=== PATIENT | female | born 1955 | race African-American/Black ===

== ENCOUNTER 2017-07-14 20:34 | Inpatient (IN) | payer OTHER ==
[~2017-07-14] VITALS: Ht 163.8 cm; Wt 64.4 kg
--- NOTE | 2017-07-14 20:30 | NUR ---
At around 1999, 61 year old female arrived via gurney accompanied by 2 tub washer. No acute distress noted. Breathing even and unlabored with normal respirations. Pleasant and calm. Vital signs stable. head to toe assessment done, pt. has right knee surgical incision with lyndon. No signs/symptoms of infection was noted. Kept clean, dry and comfortable. Call light within reach. All needs attended. Will continue to monitor.
[2017-07-14] MEDS ORDERED: BENZ1LOZ58 MM (21:54)
[2017-07-14] MEDS ORDERED: TIMO5SOL11 RIGHTEYE (21:54)
[2017-07-14] MEDS ORDERED: MAG30ORA PO (21:54)
[2017-07-14] MEDS ORDERED: LATA2.5D7 OP (21:54)
[2017-07-14] MEDS ORDERED: RIVA20TA PO (21:54)
[2017-07-14] MEDS ORDERED: MORP15TA IM (21:54)
[2017-07-14] MEDS ORDERED: PROM12.511 IM (21:54)
[2017-07-14] MEDS ORDERED: DOCU-141 PO (21:54)
[2017-07-14] MEDS ORDERED: OXYC10TA49 PO (21:54)
[2017-07-14] MEDS ORDERED: DIPH25CA83 PO (21:54)
[2017-07-14] MEDS ORDERED: ONDA4TAB5 IVP (21:54)
[2017-07-14] MEDS ORDERED: MAGN30OR PO (21:54)
[2017-07-14] MEDS ORDERED: OXYC15TA2 PO (21:54)
[2017-07-14] MEDS ORDERED: ZOLP5TAB8 PO (21:54)
[2017-07-14] MEDS ORDERED: SENN-18 PO (21:54)
[2017-07-14] MEDS ORDERED: NALO4SPR IV (21:54)
[2017-07-14] MEDS ORDERED: BISA-79 PO (21:54)
[2017-07-14] MEDS ORDERED: PANT40TA4 PO (21:54)
[2017-07-14] MEDS ORDERED: CLON0.1T PO (21:54)
[2017-07-14] MEDS ORDERED: ASPI-612 PO (21:54)
[2017-07-14] MEDS ORDERED: DORZ10DR8 OP (21:54)
--- NOTE | 2017-07-14 22:00 | NUR ---
Dr. Kemp came to see the pt. Med recon was done.
--- NOTE | 2017-07-14 23:15 | NUR ---
Pt. complained of 4/10 right knee pain. Oxycodone 10mg PRN was ordered. Medication given, however pending as per pharmacy. Relief noted.
[2017-07-14 23:44] VITALS: BP 109/74
--- NOTE | 2017-07-15 05:42 | NUR ---
Patient slept well throughout the shift. No apparent distress. Denies pain during this time. All needs attended. Will continue to monitor.
[2017-07-15 07:51] LABS: BASOPHILS # (AUTO) 0.1 K/uL (0.0-8.0); BASOPHILS % (AUTO) 1.8 % (0.0-2.0); EOSINOPHILS # (AUTO) 0.1 K/uL (0.0-0.7); EOSINOPHILS % (AUTO) 1.7 % (0.0-7.0); HEMATOCRIT 32.1 % (37-47); HEMOGLOBIN 10.5 G/DL (12.0-16.0); MEAN CORPUSCULAR HEMOGLOBIN 29.7 UUG (27.0-31.0); MEAN CORPUSCULAR HGB CONC 33 g/dL (32.0-37.0); MEAN CORPUSCULAR VOLUME 90.4 FL (81.0-99.0); MONOCYTES # (AUTO) 0.4 K/UL (0.1-1.30); MONOCYTES % (AUTO) 6.2 % (0.0-11.0); NEUTROPHILS # (AUTO) 4.2 K/UL (1.8-8.9); NEUTROPHILS % (AUTO) 61.3 % (38.5-71.5); PLATELET COUNT (AUTO) 243 K/UL (150-450); RED BLOOD CELL COUNT(AUTO) 3.55 MIL/UL (4.2-5.4); WHITE BLOOD COUNT (AUTO) 6.8 K/UL (4.0-11.2)
[2017-07-15 08:02] LABS: THYROID STIMULATING HORMONE 1.297 mIU/mL (0.358-3.740)
[2017-07-15 08:16] LABS: CREATININE 0.7 mg/dL (0.6-1.3); MAGNESIUM 2.3 mg/dL (1.8-2.4); PHOSPHOROUS 3.4 mg/dL (2.5-4.9); POTASSIUM 4.7 mmol/L (3.5-5.1); TOTAL PROTEIN, SERUM 6.7 g/dL (6.4-8.2)
[2017-07-15 08:18] VITALS: BP 115/69
--- NOTE | 2017-07-15 08:35 | NUR ---
SBAR report received. Pt. assessed to be awake, alert, oriented, and compliant with participating in PT this morning. Pt reports no discomfort or pain at this time. Morning medications administered. V/S stable. Will continue to monitor Pt and pending orders.
[2017-07-15 13:16] LABS: IRON, SERUM 33 ug/dL (50-175)
--- NOTE | 2017-07-15 16:50 | NUR ---
Pt complains of incisional pain 5/10 during routine medication administration. Oxycodone HCL 15mg administered as ordered for PRN pain by MD. All other needs met. Call light within reach. Will reassess and evaluate effectiveness of medication within the hour.
--- NOTE | 2017-07-15 17:47 | NUR ---
Contacted type photography supervisor to obtain CPM for Pt to apply at 65 degrees for 4-6hrs/day as ordered, but unable to locate one from within the hospital.
--- NOTE | 2017-07-15 18:51 | NUR ---
Pt has remained in stable condition and compliant for the duration of this shift. Pt denies pain at this time. No s/s of infection noted. Fall precautions in place and call light within reach. All needs have been met. Will continue to monitor for pain and s/s of infection. Will endorse details to police shift commander nurse.
[2017-07-15 20:48] VITALS: BP 138/82
--- NOTE | 2017-07-16 05:08 | NUR ---
QUIET NIGHT. PATIENT STABLE. MAKING NEEDS KNOWN. OOB TO THE BR WITH WALKER. VOIDING FREELY. NEEDS ATTENDED. DENIES ANY PAIN NOR ANY DISCOMFORT. WILL MONITOR PATIENT.
[2017-07-16 08:45] VITALS: BP 113/72
--- NOTE | 2017-07-16 09:10 | NUR ---
Pt. awake, alert, and oriented. v/s stable, hr slightly elevated at 110, pt states "the pain started when I was returning from the restroom" pain 04/08. Pt. compliant with all routine morning medications and additional pain medication as PRN order. Will continue to monitor effectiveness. CPM located PT requested to apply after working with pt. Call light within reach.
--- NOTE | 2017-07-16 12:00 | NUR ---
Physical therapist applied CPM at 60 degrees per pt request to work up to the ordered 65 degrees when tolerated. Will continue to monitor progress and increase when able to do so.
--- NOTE | 2017-07-16 15:12 | NUR ---
Pt. has well tolerated CPM on right LE for the past 4 hrs at 60 degrees. Pt reports pain managed to a tolerable level of 1-2/10. No s/s of infection present at this time. Will continue to monitor.
--- NOTE | 2017-07-16 18:42 | NUR ---
No changes to pt status for the duration of this shift. Will endorse to maintenance technician 3rd shift.
--- NOTE | 2017-07-16 19:30 | NUR ---
RECEIVED PATIENT LAYING COMFORTABLY IN BED. HOB ELEVATED. NO ACUTE DISTRESS NOTED. A&O X 4. FACIAL SYMMETRY. CPM AT BEDSIDE. NOTED RIGHT KNEE DRESSING AND WRAP C/D/I. PATIENT C/O PAIN ON THE RIGHT KNEE. NOTED LEFT KNEE OLD SCAR FROM SX IN 2013. WILL REVIEW MEDICATIONS. WILL GIVE MEDS ORDERED. BILATERAL PEDAL PULSES STRONG. PATIENT IS ABLE TO AMBULATE WITH WALKER. WALKER AT BEDSIDE. INSTRUCTED PATIENT TO USE CALL LIGHT WHEN IN NEED OF ASSISTANCE. VERBALIZED UNDERSTANDING. SAFETY INITIATED. CALL LIGHT WITHIN REACH. WILL CONTINUE TO MONITOR.
[2017-07-16 20:17] VITALS: BP 112/66
--- NOTE | 2017-07-17 06:24 | NUR ---
NO CHANGES T/O SHIFT. SAFETY AND COMFORT MEASURES MAINTAINED T/O SHIFT. RIGHT KNEE DRESSING C/D/I. PATIENT C/O 07/09 RIGHT KNEE PAIN, MEDS GIVEN, STATED RELIEF. ALL MEDS GIVEN ORDERED. ALL NEEDS MET.
[2017-07-17 07:40] VITALS: BP 109/69
--- NOTE | 2017-07-17 07:48 | NUR ---
Report received, at bedside. Pt found to be easily awoken out of sleep. Upon assessment Pt. states a tolerable pain level of 2-3/10 due to relief from previously administered pain medication per PRN order. Comfort and safety measures in place. Call light placed within reach. Will continue to monitor.
--- NOTE | 2017-07-17 13:48 | NUR ---
Pt sitting up in semi-fowlers position comfortably using CPM set to the ordered 65 degrees. Pt teaching to use the CPM as tolerated for the prescribed 4-6hrs/day discussed and Pt verbalized understanding. Pain level decreased to a tolerable 3/10 on pain scale due to the application of ice and PRN pain medication as ordered. Return call placed to Pt's daughter, unable to reach her at this time, left message. Call light within reach and will continue to monitor.
--- NOTE | 2017-07-17 17:39 | NUR ---
Pt. sitting comfortably in high fowlers position utilizing CPM at 65 degrees as ordered, activity well tolerated, as stated by Pt. Pt teaching provided on not increasing the CPM past the ordered 65 degrees but rather extend the length of time duration instead. Pt verbalizes understanding and plan of care discussed. All evening medications administered, manageable pain level of 3/10 during CPM activity noted. No s/s of infection at this time. Will continue to monitor and endorse to power and recovery shift engineer.
[2017-07-17 20:26] VITALS: BP 135/82
--- NOTE | 2017-07-17 20:30 | NUR ---
AAOx4 ALDRICH's OOB with walker to the BR under supervision. Continent of bowel and bladder. No BM this shift. Right knee dressing clean dry and intact. VSS. Possible D/C in am. No acute distress noted. Fall precautions maintained. Siderails up for safety. Needs attended. Denies any pain at this time. Will monitor patient.
--- NOTE | 2017-07-18 06:05 | NUR ---
SLEPT MOST OF THE SHIFT. PAIN MED GIVEN @ 2330 FOR RIGHT KNEE ROMIE. NEEDS ATTENDED, KEPT COMFORTABLE. WILL MONITOR . SEEN BY DEMARIO HERRERA. WILL MONITOR PATIENT. POSSIBLE DISCHARGE TODAY.
--- NOTE | 2017-07-18 07:46 | NUR ---
REPORT RECEIVED FROM INDUSTRIAL ORDER CLERK NURSE, PATIENT NOTED RESTING IN BED, NO COMPLAINTS OF PAIN, NO SIGNS OF DISTRESS NOTED, CALL IGHT IN REACH, BED LOCKED AND IN LOWEST POSITION
[2017-07-18 08:14] VITALS: BP 101/60
--- NOTE | 2017-07-18 19:27 | NUR ---
PATIENT NOTED ASLEEP IN BED, NO COMPLAINTS OF PAIN AT THIS TIME, NO SIGNS OF DISTRESS, SURGICAL SITE REDRESSED AT 1800 AND WRAPPED IN KATELYNN BANDAGE, CALL LIGHT IN REACH, BED LOCKED AND IN LOWEST POSITION.
--- NOTE | 2017-07-18 20:30 | NUR ---
AAOx4 ALDRICH's OOB with walker to the BR. Voiding well. Will monitor patient. Request for another knee immobilizer per Dr Phelps. Nursing supervisor wall mirror department aware. Needs attended. Was approved to stay until Monday. No acute distress noted.
[2017-07-18 20:41] VITALS: BP 119/62
--- NOTE | 2017-07-19 06:12 | NUR ---
Quiet night. Needs attended. Kept comfortable. Oxycodone 15 mg given for pain on the right knee. Had a new immobilizer per Dr Phelps's order.Voiding without any difficulty. No acute distress noted.
[2017-07-19 07:45] VITALS: BP 107/58
--- NOTE | 2017-07-19 13:29 | NUR ---
Interdisciplinary Rehab Summary
--- NOTE | 2017-07-19 17:16 | NUR ---
CM/DEBBY Costa at [facility] send authorization approving 7 days stay as well as approving the DME's ---Walker and CPM. Patient will leave with a walker and the CPM will be sent to patients home. Patient aware of plan and agreeable during interdisciplinary meeting.
--- NOTE | 2017-07-19 20:02 | NUR ---
Received pt on bed, alert, awake and oriented x4. Able to make needs known. Pleasant and calm. No acute distress noted. No complaints of pain during this time. Breathing even and unlabored. Vital signs stable, BP 125/75, HR 103, RR 20, Temp 98.1, O2 sat 100% RA. call light within reach. All needs attended.
[2017-07-19 20:07] VITALS: BP 125/75
--- NOTE | 2017-07-20 05:46 | NUR ---
Pt slept well throughout the night. Complained of pain on her right knee, medicated with oxycodone as ordered. Relief was noted. No apparent distress. Call light within reach. All needs attended.
--- NOTE | 2017-07-20 08:04 | NUR ---
Received patient awake alert and oriented. Resting in bed. With discomfort over right knee. Not in any form of distress. Call light within reach.
--- NOTE | 2017-07-20 08:30 | NUR ---
Patient for physical therapy at 9 am. Patient requested pain medications, rated pain over right knee at 7/10. PRN pain medication given.
[2017-07-20 08:50] VITALS: BP 107/68
--- NOTE | 2017-07-20 09:39 | NUR ---
Dressing changed. Up with therapy. Tolerating therapy well.
--- NOTE | 2017-07-20 14:30 | NUR ---
On CPM machine at 65 degrees tolerating well. With pain over right knee rated as 7/10. PRN pain medication given.
[2017-07-20 20:00] VITALS: BP 112/68
--- NOTE | 2017-07-20 20:30 | NUR ---
Received pt on bed awake, alert and oriented x4. No acute distress noted. Denies pain. All due meds given as ordered and well tolerated. Vital signs stable, BP 112/68, HR 101, RR 20, Temp 97.9, O2 sat 98% RA. Safety precautions observed. Call light within reach. All needs attended. Will continue to monitor.
--- NOTE | 2017-07-21 05:49 | NUR ---
Slept comfortably throughout the night. No s/s of distress. Complained 5/10 right knee pain, PRN oxycodone given as ordered. Verbalized relief. No other complaints noted. All needs attended.
[2017-07-21 08:39] VITALS: BP 118/64
--- NOTE | 2017-07-21 11:43 | NUR ---
PT SEEN ON ROUNDING. PT VITALS STABLE. ALL MEDS GIVEN. PT DISCHARGED AT 1130. PT GIVEN DISCHARGE INSTRUCTIONS REGARDING FOLLOW UP, PHARMACY APPOINTMENT AND CONTINUATION OF MEDICATIONS. PT GIVEN PRESCRIPTIONS ALONG WITH HOME MEDS. PT EDUCATED ON TOPICS SUCH INFECTION PREVENTION, FALL PREVENTION AND SMOKING CESSATION. PHOTOS TAKEN AND PLACED IN CHART. PT PROVIDED COPIES OF DISCHARGE INSTRUCTIONS. ALL BELONGING TAKEN HOME AND BELONGINGS LIST SIGNED AND PLACED IN CHART. VITALS STABLE UPON DISCHARGE.PT WENT HOME WITH A BRAND NEW WALKER. PT ASSISTED IN TRANFER WITH WHEELCHAIR. NO SIGNS OF ACUTE DISTRESS UPON DISCHARGE. Addendum: 07/21/17 at 1159 by LON ASHER RN PT LEFT WITH 26 VEDA. NO SIGN OF INFECTION.
== END 2017-07-21 11:30 | disposition home health service (06) | DRG 554 ==
PROVIDERS: ADMIT Physical Medicine & Rehabilitation Pain Medicine; ATTEND Physical Medicine & Rehabilitation Pain Medicine
DX: M17.11 Unilateral primary osteoarthritis, right knee (principal); D68.59 Other primary thrombophilia; E53.8 Deficiency of other specified B group vitamins; E66.9 Obesity, unspecified; Z96.653 Presence of artificial knee joint, bilateral; Z47.1 Aftercare following joint replacement surgery; J45.909 Unspecified asthma, uncomplicated; R26.9 Unspecified abnormalities of gait and mobility; R53.1 Weakness; D50.9 Iron deficiency anemia, unspecified; Z68.33 Body mass index [BMI] 33.0-33.9, adult; E61.1 Iron deficiency; R19.5 Other fecal abnormalities
CPT/HCPCS: 36415; 82306; 83550; 83735; 84100; 84443; 85025; 97110; 97112; 97116; 97165; 97530; 97535; A4663; J3420